=== PATIENT | male | born 1965 | race Caucasian/White ===

== ENCOUNTER 2017-03-04 11:11 | Outpatient (CLI) | payer OTHER | END 2017-03-04 11:12 | disposition critical access hospital (66) | LOC: EMS 11:11 | PROVIDERS: ATTEND Surgery | DX: R07.9 Chest pain, unspecified (principal); R06.02 Shortness of breath | CPT/HCPCS: A0425; A0427 ==

== ENCOUNTER 2017-03-04 11:39 | Emergency (ER) | payer OTHER ==
--- NOTE | 2017-03-04 12:16 | ED Physician Documentation ---
PD HPI CHEST PAIN - Stated complaint Stated Complaint: CP - Chief complaint Chief Complaint: Cardiac - History obtained from History obtained from: Patient - History of Present Illness Timing - onset: How many hours ago (1), Today Timing - onset during: Light activity, Other (had had morning break with some food just prior to it.) Timing - details: Abrupt onset Quality: Pressure, Tightness, Aching Location: Substernal Radiation: No: Jaw, Neck, Back, Abdominal, Left upper extremity, Right upper extremity, Other Improved by: Nitro (some improvement with NTG by EMS). No: Rest Worsened by: No: Inspiration, Movement, Palpation Associated symptoms: Nausea. No: Shortness of air, Diaphoresis, Vomiting, Feeling faint / dizzy, General Weakness, Palpitations, Cough Similar symptoms before: Work up / diagnostics (had similar about a year ago in [place], with ED visit and then outpatient stress tests. No admission nor interventions. No interval problems. No recent exertional CP nor dyspnea.) Recently seen: Not recently seen Review of Systems Constitutional: denies: Fever, Chills Nose: denies: Rhinorrhea / runny nose, Congestion Throat: denies: Sore throat Cardiac: denies: Palpitations, Pedal edema, Calf pain Respiratory: denies: Dyspnea, Cough GI: reports: Nausea. denies: Abdominal Pain, Vomiting, Diarrhea : denies: Dysuria, Frequency Skin: denies: Rash, Lesions Musculoskeletal: denies: Neck pain, Back pain, Extremity swelling Neurologic: denies: Generalized weakness, Near syncope PD PAST MEDICAL HISTORY - Past Medical History Cardiovascular: None Respiratory: None Neuro: None Endocrine/Autoimmune: None - Present Medications Home Medications: Ambulatory Orders Medication Instructions Recorded Confirmed Famotidine [Pepcid] 20 mg PO ONCE #30 tablet 03/04/17 - Allergies Allergies/Adverse Reactions: Allergies Allergy/AdvReac Type Severity Reaction Status Date / Time No Known Drug Allergies Allergy Verified 03/04/17 12:53 PD ED PE NORMAL - Vitals Vital signs reviewed: Yes - General General: Alert and oriented X 3, No acute distress, Well developed/nourished - HEENT HEENT: Pharynx benign - Neck Neck: Supple, no meningeal sign, No adenopathy, No JVD - Cardiac Cardiac: RRR, No murmur - Respiratory Respiratory: Clear bilaterally, Other (no chestwall tenderness) - Abdomen Abdomen: Soft, Non tender - Back Back: No CVA TTP - Derm Derm: Normal color, Warm and dry - Extremities Extremities: No deformity, No tenderness to palpate, No edema, No calf tenderness / cord - Neuro Neuro: Alert and oriented X 3, No motor deficit, Normal speech - Psych Psych: Normal mood, Normal affect Results - Vitals Vitals: Vital Signs - 24 hr 03/04/17 03/04/17 03/04/17 11:43 12:54 14:27 Temperature 36.3 C L Heart Rate 90 90 82 Respiratory 18 18 17 Rate Blood Pressure 114/72 152/91 H 141/85 H O2 Saturation 96 96 94 03/04/17 15:14 Temperature Heart Rate 76 Respiratory 17 Rate Blood Pressure 139/83 H O2 Saturation 94 Oxygen O2 Source Room air - EKG (time done) presentation Rhythm: NSR Jeff: Normal Intervals: Normal UT QRS: Normal Ischemia: Normal ST segments. No: ST elevation c/w ischemia, ST depression - Labs Labs: Laboratory Tests 03/04/17 03/04/17 03/04/17 13:15 13:15 13:15 WBC 7.7 RBC 4.45 L Hgb 13.5 L Hct 39.3 L MCV 88.3 MCH 30.4 MCHC 34.4 RDW 13.6 Plt Count 257 MPV 7.7 Neut # 5.1 Lymph # 1.7 Archer # 0.6 Eos # 0.3 Baso # 0.1 Absolute Nucleated RBC 0.00 Nucleated RBCs 0.0 Sodium 137 Potassium 3.8 Chloride 103 Carbon Dioxide 23 Anion Gap 11.0 BUN 18 Creatinine 1.0 Estimated GFR (MDRD) 79 L Glucose 139 H Calcium 9.1 Total Bilirubin 0.6 AST 44 H ALT 58 Alkaline Phosphatase 59 Troponin I < 0.04 Total Protein 7.4 Albumin 4.3 Globulin 3.1 Albumin/Globulin Ratio 1.4 Lipase 46 03/04/17 15:01 WBC RBC Hgb Hct MCV MCH MCHC RDW Plt Count MPV Neut # Lymph # Archer # Eos # Baso # Absolute Nucleated RBC Nucleated RBCs Sodium Potassium Chloride Carbon Dioxide Anion Gap BUN Creatinine Estimated GFR (MDRD) Glucose Calcium Total Bilirubin AST ALT Alkaline Phosphatase Troponin I < 0.04 Total Protein Albumin Globulin Albumin/Globulin Ratio Lipase - Rads (name of study) chest Radiology: Prelim report reviewed, EMP read contemporaneously (no acute process) PD MEDICAL DECISION MAKING - ED course Complexity details: reviewed results (ECG and labs are okay, with repeat troponin done at about 4 hours after onset of symptoms, with normal results. This combined with improvement with GI meds, strongly suggests noncardiac. ), re -evaluated patient (improved with GI cocktail. ) Departure - Departure Disposition: 01 Home, Self Care Clinical Impression: Chest pain Qualifiers: Chest pain type: precordial pain Qualified Code(s): R07.2 - Precordial pain Clinical Impression: (Ruled Out): Myocardial infarction Condition: Stable Record reviewed to determine appropriate education?: Yes Instructions: ED Chest Pain Atypical Unkn Cause Prescriptions: Famotidine [Pepcid] 20 mg PO ONCE #30 tablet Comments: Your tests here are looking okay, so does not appear to be higher danger problem. Consider possible esophageal pain and so could use some acid-reducing medication, such as famotidine daily for 1-2 weeks. Add antacids at times if getting discomfort. Recheck with PMD if persistent symptoms. Otherwise usual activity. At least one of your blood pressure readings in the ER today was elevated above the normal level. If you have diagnosed high blood pressure in the past, please be sure you are taking your BP medications and eating low salt diet. 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 It might be reactively high to the situation that has you here. You should follow up with your primary care to have the blood pressure checked again in the next few days/week or so to see if it is persistently high. If so, then you may need medication or changes in diet/lifestyle to treat it. Discharge Date/Time: 03/04/17 15:50
[2017-03-04] MEDS ORDERED: MAG HYDROX/AL HYDROX/SIMETH 30 ML UDC PO STA (12:33)
[2017-03-04] MEDS ORDERED: LIDOCAINE VISCOUS 2% 15 ML UDC MM STA (12:33)
[2017-03-04] MEDS ORDERED: LIDOCAINE VISCOUS 2% 15 ML UDC MM ONE (12:50)
[2017-03-04] MEDS ORDERED: MAG HYDROX/AL HYDROX/SIMETH 30 ML UDC ONE (12:50)
--- NOTE | 2017-03-04 12:57 | XRAY Preliminary Report ---
Exam: XR Chest 2 View PA/LAT IMPRESSION: 1. No focal consolidation. 2. Poor inspiration. 3. Peribronchial thickening, question viral bronchitis or reactive airways disease. [facility] SITE ID: [id number]
--- NOTE | 2017-03-04 13:00 | XRAY Report ---
EXAM: CHEST RADIOGRAPHY EXAM DATE: 03/04/2017 12:50 PM. CLINICAL HISTORY: Chest pain onset today about 10:30. COMPARISON: None. TECHNIQUE: 2 views. FINDINGS: Lungs/Pleura: No focal consolidation evident. No pleural effusion. No pneumothorax. Diminished lung v olumes. Peribronchial thickening. Mediastinum: Heart and mediastinal contours are unremarkable. Other: None. IMPRESSION: 1. No focal consolidation. 2. Poor inspiration. 3. Peribronchial thickening, question viral bronchitis or reactive airways disease. [facility] Referring Provider Line: [phone] SITE ID: [id number]
[2017-03-04 13:23] LABS: BASOPHILS # (AUTO) 0.1 10^3/uL (0.0-0.1); EOSINOPHILS # (AUTO) 0.3 10^3/uL (0.0-0.7); EOSINOPHILS % (AUTO) 3.5 %; HCT - HEMATOCRIT 39.3 % (42.0-52.0); HGB - HEMOGLOBIN 13.5 g/dL (14.0-18.0); LYMPHOCYTES # (AUTO) 1.7 10^3/uL (1.5-3.5); LYMPHOCYTES % (AUTO) 21.7 %; MEAN CORPUSCULAR HEMOGLOBIN 30.4 pg (27.0-31.0); MEAN CORPUSCULAR HGB CONC 34.4 g/dL (32.0-36.0); MEAN CORPUSCULAR VOLUME 88.3 fL (80.0-94.0); MEAN PLATELET VOLUME 7.7 fL (7.4-11.4); MONOCYTES # (AUTO) 0.6 10^3/uL (0.0-1.0); MONOCYTES % (AUTO) 7.6 %; NEUTROPHILS # (AUTO) 5.1 10^3/uL (1.5-6.6); NEUTROPHILS % (AUTO) 66.2 %; RED BLOOD COUNT 4.45 10^6/uL (4.70-6.10); RED CELL DISTRIBUTION WIDTH 13.6 % (12.0-15.0); UNCORRECTED WHITE BLOOD COUNT 7.7 x10^3/uL; WHITE BLOOD COUNT 7.7 x10^3/uL (4.8-10.8)
[2017-03-04 13:37] LABS: ALBUMIN/GLOBULIN RATIO 1.4 (1.0-2.2); BILIRUBIN,TOTAL 0.6 mg/dL (0.2-1.0); CALCIUM 9.1 mg/dL (8.5-10.3); POTASSIUM 3.8 mmol/L (3.5-5.0); TOTAL PROTEIN 7.4 g/dL (6.7-8.2)
[2017-03-04 15:15] VITALS: BP 139/83
[2017-03-04] MEDS ORDERED: FAMOTIDINE 20 MG TABLET PO STA (15:31)
[2017-03-04] MEDS ORDERED: FAMOTIDINE 20 MG TABLET ONE (15:42)
== END 2017-03-04 15:50 | disposition home or self-care (01) ==
LOC: ED 11:39
DX: R07.2 Precordial pain (principal); R03.0 Elevated blood-pressure reading, without diagnosis of hypertension
CPT/HCPCS: 36415; 71020; 80053; 83690; 84484; 85025; 93005; 99284; A9270